=== PATIENT | male | born 1955 | race Caucasian/White ===

== ENCOUNTER 2025-01-22 08:16 | Outpatient (CLI) | payer MEDICARE, MEDICAID ==
[~2025-01-22 08:16] MED LIST: AMLO2.5T2 PO; ASPI-1265 PO; ATOR10TA70 PO; CLOP75TA9 PO; DICL100G15 TOP; FLUT16SP10; GABA-532 PO; GLIP5TAB23 PO; HYDR25TA4 PO; LEDI1TAB PO; LISI40TA13 PO; LORA10TA7 PO; Marijuana INH; OMEP40CA21 PO
[2025-01-22] MEDS ORDERED: iohexol 350MG/ML 100ml bottle IV ONE (08:41)
[2025-01-22] MEDS ORDERED: iohexol 350 MG/ML 50ML vial IV ONE (09:04)
--- NOTE | 2025-01-22 11:29 | RADIOLOGY REPORT ---
CLINICAL INDICATION: CELLULITIS OF TOE OF RIGHT FOOT TECHNIQUE: 3 radiographic views of the right foot were obtained. Comparison: None FINDINGS/IMPRESSION: There is no evidence of acute fracture or dislocation. Cortical erosive changes are visualized at the base of the 1st distal phalanx and head of the 1st pro ximal phalanx. Osteomyelitis can not be excluded. Soft tissue swelling about the 1st digit. 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
--- NOTE | 2025-01-22 13:40 | RADIOLOGY REPORT ---
Examination: CT CTA ABDOMEN LOWER EXTR RUNOFF CLINICAL HISTORY: ATHSCL [place] ARTERIES OF EXTRM W INTRMT [place],BI Comparison: None Technique: Using helical technique, CT data from the lung bases through the toes was obtained during rapid IV contrast infusion. The examination was timed to the arterial system to generate a CT angiogr aphic study. 3D images were generated at an independent work station. Dose reduction techniques inclu ded automated exposure control. Radiation Dose Information: CT Dose: CTDI volume is 4.6 mGy. Dose-length product is 2212 mGy*cm Findings: Vascular: Abdominal aorta: Normal caliber, patent. Diffuse vascular atherosclerotic disease. Celiac artery: Patent SMA: Patent Renal arteries: Patent VARGHESE: Patent Right lower extremity: Common iliac artery: Patent. Stent is patent. External iliac artery: Patent Internal iliac artery: Patent Common femoral artery: Patent Profunda femoral artery: Patent Superficial femoral artery: Stent is patent. 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 Popliteal artery: Patent Anterior tibial artery: Patent Peroneal tibial trunk: Patent Peroneal artery: Patent Posterior tibial artery: Patent Dorsalis pedis artery: Patent Left lower extremity: Common iliac artery: Patent External iliac artery: Patent Internal iliac artery: Patent Common femoral artery: Patent Profunda femoral artery: Patent Superficial femoral artery: Patent with multiple high-grade tandem stenoses prominent distal. Popliteal artery: Patent Anterior tibial artery: Patent Peroneal tibial trunk: Patent Peroneal artery: Patent Posterior tibial artery: Patent Dorsalis pedis artery: Patent Portal/mesenteric veins: normal Abdominal systemic veins: normal Chest: Heart: Cardiomegaly. Abdomen/Pelvis: Liver: The liver is normal in size and morphology,. No focal hepatic lesion. The portal veins are pat ent. Biliary System: Gallbladder: Normal Bile Ducts: No intrahepatic or extrahepatic biliary ductal dilation. Spleen: No splenomegaly or focal splenic lesion. Pancreas: No masses or ductal dilation. Adrenals: Normal. Urinary System: Kidneys and Ureters: Normal in size and location. No renal masses. No renal or ureteral calculi. No hydronephrosis or hydroureter. Bladder: Normal. GI System: Stomach, small bowel, and large bowel are normal in caliber without wall thickening or dil ation Vasculature: Arteries: Abdominal aorta is normal in caliber. Splanchnic arteries are proximally patent. Diffuse v ascular atherosclerotic disease. Lymph nodes: No lymphadenopathy. Peritoneal cavity and surface: No free fluid. No pneumoperitoneum. Soft Tissues: Nonspecific inflammatory changes in the left groin. Reproductive Organs: Normal. Bones: No acute fracture or aggressive osseous lesion. Impression: Vascular: 1. Diffuse vascular atherosclerotic disease. Right Lower Extremity: Right common iliac artery and right superficial femoral artery stents are patent. 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 Patent 3 vessel runoff Left Lower Extremity: Multiple high-grade tandem stenoses of the left superficial femoral artery most prominent distally. Patent 3 vessel runoff Abdomen/Pelvis: 1. No acute abdominal pelvic process.
== END 2025-01-22 23:59 | disposition home or self-care (01) ==
LOC: RAD 08:16
PROVIDERS: ATTEND Internal Medicine Interventional Cardiology
DX: I70.213 Atherosclerosis of native arteries of extremities with intermittent claudication, bilateral legs (principal); Z12.2 Encounter for screening for malignant neoplasm of respiratory organs; M85.871 Other specified disorders of bone density and structure, right ankle and foot; I72.3 Aneurysm of iliac artery; L03.031 Cellulitis of right toe; M79.89 Other specified soft tissue disorders; M86.8X7 Other osteomyelitis, ankle and foot
CPT/HCPCS: 71271; 73630; 75635; Q9967